=== PATIENT | male | born 1970 | race Caucasian/White ===

== ENCOUNTER 2024-06-09 10:37 | Day surgery (SDC) | payer BC ==
[2024-06-09] VITALS (14 sets, daily range): BP systolic 98–120; BP diastolic 57–81; PULSE 52–67; RESP 11–17; TEMP 98.8; O2SAT 94–98
[~2024-06-09] VITALS: Ht 182.9 cm; Wt 91.3 kg
[~2024-06-09 10:37] MED LIST: no home medication
[2024-06-09] MEDS ORDERED: nitroGLYCERIN 0.4mg SUBLingual tab SL PRN ×2 (11:15→13:35)
[2024-06-09 11:40] LABS: BASOPHILS % (AUTO) 0.5 % (0-1); EOSINOPHILS # (AUTO) 0.1 X10'3 (0-0.9); EOSINOPHILS % (AUTO) 1.9 % (0-6); HEMATOCRIT 43.4 % (42.0-52.0); HEMOGLOBIN 14.8 g/dl (14.0-17.9); LYMPHOCYTES # (AUTO) 1.3 X10'3 (1.1-4.8); LYMPHOCYTES % (AUTO) 29.1 % (21-51); MEAN CORPUSCULAR HEMOGLOBIN 31.3 PG (27.0-31.0); MEAN CORPUSCULAR HGB CONC 34.1 g/dL (33.0-36.5); MEAN PLATELET VOLUME 8.8 FL (7.4-10.4); MONOCYTES # (AUTO) 0.4 X10'3 (0-0.9); MONOCYTES % (AUTO) 9.3 % (2-12); NEUTROPHILS # (AUTO) 2.7 X10'3 (1.8-7.7); NEUTROPHILS % (AUTO) 59.2 % (42-75); PLATELET COUNT 173 X10'3 (140-440); RED BLOOD COUNT 4.72 X10'6 (4.70-6.10); RED CELL DISTRIBUTION WIDTH 13.1 % (11.5-14.5); WHITE BLOOD COUNT 4.6 X10'3 (4.5-11.0)
[2024-06-09] MEDS: LORazepam 0.5 MG tablet PO PRN (11:54)
[2024-06-09] MEDS: normal saline 1,000 ML IV SCH (11:54)
[2024-06-09] MEDS: diphenhydrAMINE 25mg capsule PO PRN (11:54)
[2024-06-09] MEDS ORDERED: iohexol 350MG/ML 100ml bottle IV ONE (11:55)
[2024-06-09] MEDS ORDERED: fentaNYL/PF 50MCG/1 ML 2ML syringe ONE ×2 (11:55→12:37)
[2024-06-09] MEDS ORDERED: midazolam 1 mg/ML 2ml injection ONE ×2 (11:55→12:37)
[2024-06-09] MEDS ORDERED: LIDOcaine 1% 30ml preserv. free vial ONE (11:55)
[2024-06-09] MEDS ORDERED: iohexol 350 MG/ML 50ML vial IV ONE (11:55)
[2024-06-09] MEDS ORDERED: ASPI-611 PO (11:56)
[2024-06-09] MEDS ORDERED: PANT-47 PO (11:56)
[2024-06-09] MEDS ORDERED: MAGN500C4 PO (11:56)
[2024-06-09] MEDS ORDERED: [UNRECOGNIZED DRUG - CODE] (11:56)
[2024-06-09] MEDS ORDERED: ASCO500C12 PO (11:56)
[2024-06-09 12:03] LABS: ALBUMIN 4.1 G/DL (3.4-5.0); ANION GAP 6 (8-16); BLOOD UREA NITROGEN 17 MG/DL (7-18); BUN/CREATININE RATIO 19.3 (10.0-20.0); CALCIUM 8.9 MG/DL (8.5-10.1); CHLORIDE 103 MMOL/L (99-107); CREATININE 0.88 MG/DL (0.60-1.10); GLUCOSE 82 MG/DL (70-104); POTASSIUM 3.6 MMOL/L (3.5-5.1); SODIUM 140 MMOL/L (135-145); TOTAL CARBON DIOXIDE 30.8 MMOL/L (24-32); eCRCL 103 ML/MIN; eGFR 90 ML/MIN
[2024-06-09 12:50] LABS: MAGNESIUM 2.4 MG/DL (1.5-2.4)
[2024-06-09 13:01] LABS: PROTHROMBIN TIME 10.8 SECONDS (9.0-12.0)
[2024-06-09] MEDS ORDERED: proCHLORperazine 10 MG/2 ml inj IV PRN (13:35)
[2024-06-09] MEDS ORDERED: ondansetron/PF 4mg/2ml inj IV PRN (13:35)
[2024-06-09] MEDS ORDERED: HYDROcodone/acetaminophen 5mg/325mg tablet PO PRN (13:35)
[2024-06-09] MEDS ORDERED: OXAZEpam 15mg capsule PO PRN (13:35)
[2024-06-09] MEDS ORDERED: HYDROcodone/acetaminophen 10/325mg tab PO PRN (13:35)
== END 2024-06-09 18:53 | disposition home or self-care (01) ==
LOC: SSTAY O 10:37
PROVIDERS: ATTEND Internal Medicine Cardiovascular Disease
DX: R94.39 Abnormal result of other cardiovascular function study (principal); I25.10 Atherosclerotic heart disease of native coronary artery without angina pectoris; K21.9 Gastro-esophageal reflux disease without esophagitis; I25.2 Old myocardial infarction; Z79.82 Long term (current) use of aspirin; Z79.899 Other long term (current) drug therapy; Z88.8 Allergy status to other drugs, medicaments and biological substances; E78.5 Hyperlipidemia, unspecified; Z87.891 Personal history of nicotine dependence; Z98.890 Other specified postprocedural states
CPT/HCPCS: 36415; 71046; 80048; 83735; 85025; 85610; 93005; 93458; 99152; 99153; J1644; J2003; J2250; J3010; J7030; Q0163; Q9967; A6258; C1760